=== PATIENT | male | born 1975 ===

== ENCOUNTER 2017-10-08 12:23 | Outpatient (CLI) | payer OTHER ==
[~2017-10-08 12:23] MED LIST: DICLOFENAC POTA50 MG PO; ENALAPRIL HCTZ PO; PROZAC20 MG PO; RELPAX40 MG PO; RESTORIL30 MG PO
== END 2017-10-08 12:40 | disposition home or self-care (01) ==
LOC: RAD 12:23
DX: M25.522 Pain in left elbow (principal); M25.521 Pain in right elbow; M25.562 Pain in left knee; M25.561 Pain in right knee; M25.542 Pain in joints of left hand; M25.541 Pain in joints of right hand

== ENCOUNTER 2018-07-12 12:37 | Outpatient (CLI) | payer OTHER | END 2018-07-12 13:20 | disposition home or self-care (01) | LOC: TOM 12:37 | DX: R42 Dizziness and giddiness (principal); F41.8 Other specified anxiety disorders; R11.0 Nausea; R51 Headache; Z00.01 Encounter for general adult medical examination with abnormal findings ==

== ENCOUNTER 2020-11-22 12:55 | Emergency (ER) | payer OTHER ==
[~2020-11-22] VITALS: Ht 165.1 cm; Wt 88.9 kg
[2020-11-22] MEDS ORDERED: LEVOTHYROXINE25 MCG PO (13:06)
[2020-11-22] MEDS ORDERED: ATIVAN0.5 M1 PO (13:06)
[2020-11-22] MEDS ORDERED: DOXYCYCLINE HYC50 MG PO (13:07)
== END 2020-11-22 16:46 | disposition home or self-care (01) ==
LOC: ER 12:55
DX: L02.415 Cutaneous abscess of right lower limb (principal); L03.115 Cellulitis of right lower limb; B95.61 Methicillin susceptible Staphylococcus aureus infection as the cause of diseases classified elsewhere

== ENCOUNTER 2022-07-03 12:23 | Outpatient (CLI) | payer OTHER ==
[~2022-07-03 12:23] MED LIST changes: +ATIVAN0.5 M1 PO; +DOXYCYCLINE HYC50 MG PO; +LEVOTHYROXINE25 MCG PO
== END 2022-07-03 12:27 | disposition home or self-care (01) ==
LOC: SONOGRAMA 12:23
PROVIDERS: ATTEND General Practice
DX: E07.89 Other specified disorders of thyroid (principal); R05.9 Cough, unspecified; R07.0 Pain in throat

== ENCOUNTER 2023-07-24 10:12 | Outpatient (CLI) | payer OTHER | END 2023-07-24 10:23 | disposition home or self-care (01) | LOC: TOM 10:12 | PROVIDERS: ATTEND Specialist | DX: R51.9 Headache, unspecified (principal) ==

== ENCOUNTER 2024-04-10 12:43 | Outpatient (CLI) | payer OTHER | END 2024-04-10 12:51 | disposition home or self-care (01) | LOC: SONOGRAMA 12:43 | PROVIDERS: ATTEND General Practice | DX: R31.9 Hematuria, unspecified (principal); E78.5 Hyperlipidemia, unspecified; E78.2 Mixed hyperlipidemia ==

== ENCOUNTER 2024-09-19 13:43 | Outpatient (CLI) | payer OTHER | END 2024-09-19 13:48 | disposition home or self-care (01) | LOC: RAD 13:43 | DX: J06.9 Acute upper respiratory infection, unspecified (principal); M54.16 Radiculopathy, lumbar region; E29.1 Testicular hypofunction; M54.50 Low back pain, unspecified ==